=== PATIENT | male | born 1970 | race Caucasian/White ===

== ENCOUNTER 2021-02-03 09:14 | Emergency (ER) | payer OTHER, SELFPAY ==
--- NOTE | 2021-02-03 09:24 | ED.URI ---
HPI - URI/Sore Throat General Chief Complaint: Upper Respiratory Infection Stated Complaint: Sinus Pain Time Seen by Provider: 02/03/21 09:24 Source: patient and RN notes reviewed History of Present Illness HPI Narrative: Patient is a 50-year-old male who presents the urgent care with complaints of sinus congestion, nasal congestion, sinus pressure for the last 3 weeks. Patient states that he does have an appointment with his ENT but unfortunately has not been able to get in for some time. Patient does need a repeat sinus surgery to remove a polyp on the right side. Patient denies any fevers, nausea, vomiting. States that he has been taking daily Claritin and Flonase without much relief. Patient denies of any exposures to Covid. States that he does have a Covid vaccine. No other acute complaints. No acute distress noted. Patient aware of the plan of care. Some parts of this dictation were generated by voice recognition software and may contain typographical and/or grammatical inaccuracies. Related Data Allergies Allergy/AdvReac Type Severity Reaction Status Date / Time No Known Allergies Allergy Verified 02/03/21 09:34 Review of Systems Review of Systems: CONSTITUTIONAL: Denies fever, chills, or sweats. EYES: Denies visual changes, redness, or discharge. ENT: Reports of sinus congestion, postnasal drainage and sinus pressure CARDIOVASCULAR: Denies chest pain, palpitations, or edema. RESPIRATORY: Denies cough or dyspnea. GASTROINTESTINAL: Denies abdominal pain, nausea, vomiting, or diarrhea. GENITOURINARY: Denies dysuria or hematuria. SKIN: Denies rash or itching. MUSCULOSKELETAL: Denies back pain, joint pain, or myalgia. NEUROLOGIC: Denies headache, numbness, or weakness. All other systems reviewed are negative, except as documented in HPI. PMFSH Social History Social History Smoking status: Never smoker Alcohol intake: never Comments At the time of my signature, I reviewed and agree with the nursing past medical, surgical, social, and family history. There is no relevant family history pertinent to the patient complaint. Exam Narrative: GENERAL: This is a well-nourished, well-developed patient, in no apparent distress. HEAD: normocephalic, atraumatic. Frontal sinus pressure tenderness EYES: PERRL. Sclera clear/white. Vision is grossly intact. Mild bilateral injected conjunctiva with clear drainage EARS: External ears normal, auditory canals clear and without drainage, TMs normal without perforation. Hearing grossly intact. NOSE: External nose normal with no obvious nasal discharge, bilateral erythemic nares with clear to yellow rhinorrhea THROAT: Mucous membranes moist, posterior pharynx clear. Moderate postnasal drainage NECK: Neck supple, non-tender without lymphadenopathy, masses or thyromegaly. CARDIOVASCULAR: Regular rate and rhythm without murmurs, gallops, or rubs. RESPIRATORY: Clear to auscultation. Breath sounds equal bilaterally. No wheezes, rales, or rhonchi. SKIN: warm, intact with no suspicious lesions or rash, good texture and turgor. NEURO: awake, alert, and oriented to person, place and time. There were no obvious focal neurologic abnormalities. EXTREMITIES: No clubbing, cyanosis, or edema. Course Vital Signs Vital signs: Vital Signs Temperature 99.1 F 02/03/21 09:27 Pulse Rate 102 H 02/03/21 09:27 Respiratory Rate 18 02/03/21 09:27 Blood Pressure 147/105 H 02/03/21 09:27 Pulse Oximetry 98 02/03/21 09:27 Temperature 99.1 F 02/03/21 09:27 Pulse Rate 102 H 02/03/21 09:27 Respiratory Rate 18 02/03/21 09:27 Blood Pressure 147/105 H 02/03/21 09:27 Pulse Oximetry 98 02/03/21 09:27 Reviewed-patient is informed that they may have pre-hypertension or hypertension based on a blood pressure reading in the department. I recommend the patient call the primary care provider listed on their discharge instructions or a physician of their choice this week to arrange follow-up
[2021-02-03 09:27] VITALS: BP 147/105; PULSE 102; RESP 18; TEMP 37.3; O2SAT 98
[2021-02-03 09:37] VITALS: BP 142/102
== END 2021-02-03 09:37 | disposition home or self-care (01) ==
PROVIDERS: Emergency Provider Nurse Practitioner Family
DX: J32.9 Chronic sinusitis, unspecified (principal)
CPT/HCPCS: 99203; G0463

== ENCOUNTER 2021-03-11 09:08 | Emergency (ER) | payer OTHER, SELFPAY ==
[2021-03-11 09:20] VITALS: BP 137/91; PULSE 88; RESP 16; TEMP 36.7; O2SAT 98
--- NOTE | 2021-03-11 10:19 | ED.URI ---
HPI - URI/Sore Throat General Chief Complaint: Upper Respiratory Infection Stated Complaint: Sore throat, cough Source: patient Mode of arrival: ambulatory Limitations: no limitations History of Present Illness HPI Narrative: 50-year-old male presents to [facility] with complaints of sinus pressure, nasal congestion for the past 7 days. Patient was evaluated here on February 03, treated with antibiotics for a sinus infection. Patient does take Zyrtec and Flonase daily. Patient denies shortness of breath, wheezing, nausea, vomiting or diarrhea. MD elicited complaint: rhinorrhea, nasal congestion and sinus pain Onset (ago): day(s) (7) Consistency: constant Exacerbating factors: nothing Related Data Home Medications Medication Instructions Recorded Confirmed albuterol sulfate 2 puff INHALATION QID PRN 02/03/21 03/11/21 budesonide-formoterol [Symbicort] 2 puff INHALATION QID PRN 02/03/21 03/11/21 zolpidem 10 mg PO DAILY 02/03/21 03/11/21 Allergies Allergy/AdvReac Type Severity Reaction Status Date / Time No Known Allergies Allergy Verified 03/11/21 09:58 Review of Systems Constitutional: Constitutional: Denies chills, Denies fever(s) and Denies weakness ENT: Denies dysphagia, Denies epistaxis and Denies sore throat Comments: Sinus pressure, nasal congestion Cardiovascular: Cardiovascular: Denies chest pain, Denies rapid heart rate and Denies slow heart rate Respiratory: Respiratory: Denies cough and Denies dyspnea Gastrointestinal: Gastrointestinal: Denies abdominal pain and Denies nausea Integumentary/Breasts: Skin/Breast: Denies rash Neurologic: Denies dizziness and Denies headache(s) [facility] Past Medical History Medical History (Updated 03/11/21 @ 10:24 by Staci Leal APRN) Nasal polyps Social History Social History Smoking status: Never smoker Alcohol intake: never Comments At time of signature, I agree with nursing past medical, surgical, social and family history. There is no relevant family history pertinent to the presenting complaint. Exam Const: General: healthy appearing and no acute distress Orientation/consciousness: patient oriented x3 HENMT: Ears: external ears normal and TM's normal bilaterally General nose exam: Normal external nose present and Normal nares present Face and sinus: sinus tenderness Mouth: Yes lip normal and Yes moist mucous membranes Other: Moderate amount of nasal congestion noted. Neck: Neck: normal visual inspection Resp: Effort & Inspection: normal respiratory effort, not labored and not tachypneic Auscultation: clear to auscultation bilaterally Cardio: Rate: regular rate, not bradycardic and not tachycardic Rhythm: regular rhythm and regular rhythm Skin: General skin exam: normal color Rashes: no rashes Neuro: General: patient oriented x3, moves all extremities and no meningeal signs Psych: Appearance: grossly normal Affect: normal affect Attitude: cooperative Course Course Level of Care: Express Care Visit Vital Signs Vital signs: Vital Signs Temperature 36.7 C 03/11/21 09:20 Pulse Rate 88 03/11/21 09:20 Respiratory Rate 16 03/11/21 09:20 Blood Pressure 137/91 H 03/11/21 09:20 Pulse Oximetry 98 03/11/21 09:20 Temperature 36.7 C 03/11/21 09:20 Pulse Rate 88 03/11/21 09:20 Respiratory Rate 16 03/11/21 09:20 Blood Pressure 137/91 H 03/11/21 09:20 Pulse Oximetry 98 03/11/21 09:20 MDM - URI/Sore Throat MDM Narrative Medical decision making narrative: Discussed positive COVID results with patient. Discussed CDC recommendation for quarantine. Patient agrees to continue Zyrtec and Flonase daily. Patient agrees to proceed the emergency room symptoms worsen. Differential Diagnosis Differential diagnosis: Likely upper respiratory infection, otitis media and sinusitis Lab Data Lab results narrative: Positive rapid COVID Critical Care Time Criti
== END 2021-03-11 10:25 | disposition home or self-care (01) ==
PROVIDERS: Emergency Provider Nurse Practitioner Family
DX: U07.1 COVID-19 (principal)
CPT/HCPCS: 87426; 99213; C9803; G0463

== ENCOUNTER 2021-04-16 11:11 | Emergency (ER) | payer OTHER, SELFPAY ==
[2021-04-16 11:16] VITALS: BP 127/90; PULSE 89; RESP 16; TEMP 37; O2SAT 98
--- NOTE | 2021-04-16 11:19 | ED.URI ---
HPI - URI/Sore Throat General Chief Complaint: Upper Respiratory Infection Stated Complaint: sinus pressure Time Seen by Provider: 04/16/21 11:12 Source: patient and RN notes reviewed History of Present Illness HPI Narrative: Patient is a 50-year-old male who presents the urgent care with acute on chronic sinus pressure and inflammation. Patient states that it has been recurrent since his last visit here in February. Patient states that the steroids helped for some time but then approximately 5 days later it comes back . Patient has had a chronic sinusitis and is supposed to be having surgery to have a left polyp removed. Patient has history of deviated septum and right polyps removed. States that he has been using Claritin, Zyrtec and Flonase without much relief. Denies any fevers, nausea, vomiting, cough. No other acute complaints. No acute distress noted. Patient read the plan of care. Some parts of this dictation were generated by voice recognition software and may contain typographical and/or grammatical inaccuracies. Related Data Home Medications Medication Instructions Recorded Confirmed albuterol sulfate 2 puff INHALATION QID PRN 02/03/21 04/16/21 budesonide-formoterol [Symbicort] 2 puff INHALATION QID PRN 02/03/21 04/16/21 zolpidem 10 mg PO HS 02/03/21 04/16/21 fluocinonide 1 applic TOPICAL QID 04/16/21 04/16/21 fluticasone propionate [Flonase 2 spray NASAL DAILY 04/16/21 04/16/21 Allergy Relief] loratadine 10 mg PO DAILY 04/16/21 04/16/21 Allergies Allergy/AdvReac Type Severity Reaction Status Date / Time No Known Allergies Allergy Verified 04/16/21 11:27 Review of Systems Review of Systems: CONSTITUTIONAL: Denies fever, chills, or sweats. EYES: Denies visual changes, redness, or discharge. ENT: Reports of rhinorrhea and acute on chronic congestion and sinus pressure CARDIOVASCULAR: Denies chest pain, palpitations, or edema. RESPIRATORY: Denies cough or dyspnea. GASTROINTESTINAL: Denies abdominal pain, nausea, vomiting, or diarrhea. GENITOURINARY: Denies dysuria or hematuria. SKIN: Denies rash or itching. MUSCULOSKELETAL: Denies back pain, joint pain, or myalgia. NEUROLOGIC: Denies headache, numbness, or weakness. All other systems reviewed are negative, except as documented in HPI. [facility] Past Medical History Medical History (Updated 04/16/21 @ 11:39 by YANE Bowers) Nasal polyps Social History Social History Smoking status: Never smoker Alcohol intake: never Comments At the time of my signature, I reviewed and agree with the nursing past medical, surgical, social, and family history. There is no relevant family history pertinent to the patient complaint. Exam Narrative: GENERAL: This is a well-nourished, well-developed patient, in no apparent distress. HEAD: normocephalic, atraumatic. EYES: PERRL. Sclera clear/white. Vision is grossly intact. EARS: External ears normal, auditory canals clear and without drainage, TMs normal without perforation. Hearing grossly intact. NOSE: External nose normal with no obvious nasal discharge. Bilateral erythemic nares with clear yellow rhinorrhea THROAT: Mucous membranes moist. Moderate postnasal drainage patient NECK: Neck supple CARDIOVASCULAR: Regular rate and rhythm without murmurs, gallops, or rubs. RESPIRATORY: Clear to auscultation. Breath sounds equal bilaterally. No wheezes, rales, or rhonchi. SKIN: warm, intact with no suspicious lesions or rash, good texture and turgor. NEURO: awake, alert, and oriented to person, place and time. There were no obvious focal neurologic abnormalities. EXTREMITIES: No clubbing, cyanosis, or edema. Course Course Level of Care: Express Care Visit Vital Signs Vital signs: Vital Signs Temperature 98.6 F 04/16/21 11:16 Pulse Rate 89 04/16/21 11:16 Respiratory Rate 16 04/16/21 11:16 Blood Pressure 127/90 04/16/21 11:16 Pulse Oxime
== END 2021-04-16 11:40 | disposition home or self-care (01) ==
PROVIDERS: Emergency Provider Nurse Practitioner Family
DX: J32.9 Chronic sinusitis, unspecified (principal); J45.909 Unspecified asthma, uncomplicated
CPT/HCPCS: 99213; G0463